=== PATIENT | female | born 1955 | race Caucasian/White ===

== ENCOUNTER 2024-06-07 10:37 | Inpatient (IN) | payer OTHER ==
[~2024-06-07] VITALS: Ht 170.2 cm; Wt 93.1 kg
[~2024-06-07 10:37] MED LIST: ATOR40TA PO
[2024-06-07 11:41] LABS: BASOPHILS ABSOLUTE AUTO 0.08 K/mm3 (0.00-0.23); BASOPHILS PERCENT AUTO 1 % (0-2); EOSINOPHILS ABSOLUTE AUTO 0.18 K/mm3 (0.00-0.68); EOSINOPHILS PERCENT AUTO 2 % (0-6); Hematocrit 42.3 % (33.0-51.0); Hemoglobin 13.7 g/dL (11.5-16.0); IMMATURE GRAN ABSOLUTE AUTO 0.04 K/mm3 (0.00-0.10); IMMATURE GRAN PERCENT AUTO 0 % (0-1); LYMPHOCYTES ABSOLUTE AUTO 2.48 K/mm3 (0.84-5.20); LYMPHOCYTES PERCENT AUTO 21 % (21-46); MONOCYTES ABSOLUTE AUTO 0.65 K/mm3 (0.16-1.47); MONOCYTES PERCENT AUTO 6 % (4-13); Mean Corpuscular HGB 28.9 pg (26.0-34.0); Mean Corpuscular HGB Conc 32.4 g/dL (31.5-36.5); Mean Corpuscular Volume 89 fL (80-100); Mean Platelet Volume 8.7 fL (9.1-12.4); NEUTROPHILS ABSOLUTE AUTO 8.36 K/mm3 (1.96-9.15); NEUTROPHILS PERCENT AUTO 71 % (41-73); Platelet Count 346 K/mm3 (150-400); RDW Coefficient Variation 13.6 % (11.7-14.2); RDW Standard Deviation 44.1 fL (35.1-46.3); Red Blood Cell Count 4.74 M/mm3 (3.80-5.20); White Blood Cell Count 11.79 K/mm3 (4.00-11.30)
[2024-06-07 11:58] LABS: Albumin, Blood 3.5 g/dL (3.4-5.0); Albumin/Globulin Ratio 0.9 (0.8-1.8); Bilirubin, Total 0.4 mg/dL (0.1-1.0); Bun/Creatinine Ratio 22.5 (12.0-20.0); Calcium, Blood 9.5 mg/dL (8.5-10.1); Creatinine, Blood 0.93 mg/dL (0.40-1.00); Globulin, Blood 3.9 g/dL (2.2-4.0); Total Protein, Blood 7.4 g/dL (6.4-8.2)
[2024-06-07 13:10] LABS: Influenza A, PCR NEGATIVE (NEGATIVE); Influenza B, PCR NEGATIVE (NEGATIVE); Resp Syncytial Virus, PCR NEGATIVE (NEGATIVE); SARS-Cov-2 (COVID-19) PCR, MMC NEGATIVE (NEGATIVE)
[2024-06-07] MEDS ORDERED: Lactated Ringer's 1,000 ML IV SCH (14:15)
[2024-06-07] MEDS ORDERED: FLU VACC TS2024-25(6MOS UP)/PF 45 MCG/0.5 ML SYRINGE IM ONE (16:05)
[2024-06-07] MEDS ORDERED: Ipratropium/Albuterol SulF 2.5-0.5MG/3 ML Amp INH PRN (16:45)
[2024-06-07] MEDS ORDERED: NS 1,000 ML IV SCH (17:00)
[2024-06-07 17:26] VITALS: BP 105/79
[2024-06-07] MEDS ORDERED: Metoprolol Tartrate 25 MG Tab PO SCH (18:11)
--- NOTE | 2024-06-07 18:24 | NUR ---
ASSUMPTION OF CARE/SHIFT SUMMARY PT ALERT AND ORIENTED, SHE IS CALM, COOPAERATIVE TO CARE, SKIN INTACT, NO BREAKDOWN NOTED, R AC PIV, NS RUNNING PER EMAR. HR IN THE 100'S-130'S, SINUS RHYTHM, TACHY WITH EXERTION, 02 >92% ON RA, L/S DIM T/O, SOB WITH EXERTION. CALL PLACED TO PROVIDER ORDER FOR HEART RATE CONTROL AND TRENDING TROPONINS. PT QUESTIONS ANSWERED, NO NEW QUESTIONS AT THIS TIME. WILL CONTINUE TO MONITOR AND REPORT TO [employer] BOAT BUILDER RN.
[2024-06-07 20:00] VITALS: BP 116/77
[2024-06-07] MEDS ORDERED: Acetaminophen 500MG/DP-Hydram 25MG HCL 1 Tab PO PRN (20:50)
--- NOTE | 2024-06-08 02:58 | NUR ---
TRANSFER PT TO BE TRANSFERRED TO MEDICAL FLOOR, REPORT GIVEN TO KARMA DURAN. PT A&O X4, PLEASANT AND COOPERATIVE WITH CARE. PT LEFT VIA HOSPITAL BED, ON RA. VSS. PT CONTINUES TO HAVE DYSPNEA WITH EXERTION, BUT AT TIME OF TRANSFER PT DOING WELL RESPIRATORY [facility]. FORENSIC DNA ANALYST TRANSFERRED PT TO MEDICAL FLOOR. OF NOTE THIS RN CALLED RESIDENT TO CLARIFY AND NOTIFY OF PT INITIAL BNP OF [phone], NO DIURETICS ADMINISTERED, PT WITH NS INFUSING CONTINOUSLY AT 100 MLS. THIS RN ASKING FOR CLARIFICATION, WELL IF RESIDENT WOULD LIKE TO ADMINISTER ANY DIURETICS AND IF WANTING TO CONTINUE IVF. NOTIFIED OF PT'S CONTINUED DYSPNEA AND PMH. RESIDENT ORDERS TO DC IVF. RESIDENT TO REVIEW CHART AND MAKE DECISION REGARDING DIURETICS.
[2024-06-08 03:19] VITALS: BP 120/87
[2024-06-08 03:20] VITALS: BP 120/87
--- NOTE | 2024-06-08 06:21 | NUR ---
SHIFT SUMMARY/ PT TRANSFER FROM PCU RECEIVED PT FROM PCU AT 0300. A&O X4. C/O FEELING SOB WITH ANY ACTIVITY. CONTINUOUS PULSE OX PLACED WITH O2 SATS > 90%. SOB INCREASED UPON AWAKENING, BUT PT ABLE TO CARRY ON MULTI SENTENCED CONVERSATION. OOB WITH ASSISTANCE TO BATHROOM. CALL LIGHT WITHIN REACH. SIDE RAILS UP X2. BED ALARM ON.
[2024-06-08 06:23] LABS: BASOPHILS ABSOLUTE AUTO 0.06 K/mm3 (0.00-0.23); BASOPHILS PERCENT AUTO 1 % (0-2); EOSINOPHILS ABSOLUTE AUTO 0.25 K/mm3 (0.00-0.68); EOSINOPHILS PERCENT AUTO 2 % (0-6); Hemoglobin 13.4 g/dL (11.5-16.0); IMMATURE GRAN ABSOLUTE AUTO 0.05 K/mm3 (0.00-0.10); IMMATURE GRAN PERCENT AUTO 0 % (0-1); LYMPHOCYTES PERCENT AUTO 24 % (21-46); MONOCYTES ABSOLUTE AUTO 0.64 K/mm3 (0.16-1.47); MONOCYTES PERCENT AUTO 6 % (4-13); Mean Corpuscular HGB 28.6 pg (26.0-34.0); Mean Corpuscular HGB Conc 31.9 g/dL (31.5-36.5); Mean Corpuscular Volume 90 fL (80-100); Mean Platelet Volume 8.8 fL (9.1-12.4); NEUTROPHILS ABSOLUTE AUTO 7.69 K/mm3 (1.96-9.15); NEUTROPHILS PERCENT AUTO 68 % (41-73); Platelet Count 332 K/mm3 (150-400); RDW Coefficient Variation 13.8 % (11.7-14.2); RDW Standard Deviation 44.4 fL (35.1-46.3); Red Blood Cell Count 4.69 M/mm3 (3.80-5.20); White Blood Cell Count 11.39 K/mm3 (4.00-11.30)
[2024-06-08 06:55] LABS: Alanine Aminotransfer (ALT/SGP 36 U/L (12-78); Albumin, Blood 3.3 g/dL (3.4-5.0); Albumin/Globulin Ratio 0.9 (0.8-1.8); Alk Phos 84 U/L (50-136); Anion Gap 10 mmol/L (3-11); Aspartate Aminotrans (AST/SGOT 33 U/L (12-37); Bilirubin, Total 0.4 mg/dL (0.1-1.0); Blood Urea Nitrogen 20 mg/dL (8-24); Bun/Creatinine Ratio 20.9 (12.0-20.0); CHOL/HDL RATIO 4.3; CO2, Blood 25 mmol/L (21-32); Calcium, Blood 8.9 mg/dL (8.5-10.1); Chloride, Blood 110 mmol/L (98-108); Cholesterol 226 mg/dL (50-200); Creatinine, Blood 0.96 mg/dL (0.40-1.00); Globulin, Blood 3.7 g/dL (2.2-4.0); Glomerular Filtration Rate 64 (60-); Glucose, Blood 119 mg/dL (70-99); HDL Cholesterol 52 mg/dL (>39); LDL/HDL RATIO 2.6; Low Density Lipoprotein Chol 136 mg/dL (0-110); Potassium, Blood 4.1 mmol/L (3.5-5.5); Sodium, Blood 141 mmol/L (136-145); Triglycerides 188 mg/dL (30-160); Very Low Density Lipoprot Chol 37 mg/dL (6-32)
[2024-06-08 07:25] VITALS: BP 118/72
[2024-06-08] MEDS ORDERED: Furosemide 10 MG / ML 2ML Vial IV SCH ×2 (08:00→18:00)
[2024-06-08] MEDS ORDERED: Atorvastatin 40 MG Tab PO SCH (09:00)
[2024-06-08] MEDS ORDERED: Enoxaparin 40 MG/0.4 ML SYR SC SCH (09:00)
[2024-06-08] MEDS ORDERED: HydrOXYzine Pamoate 25 MG Cap PO PRN (12:15)
[2024-06-08] MEDS ORDERED: Acetaminophen 500MG/DP-Hydram 25MG HCL 1 Tab PO PRN (12:20)
[2024-06-08] MEDS ORDERED: Mometasone/Formoterol MDI 200/5 mcg 13 GM INH SCH (12:20)
[2024-06-08 15:12] VITALS: BP 119/65
[2024-06-08] MEDS ORDERED: Albuterol 2.5 MG/3 ML VIAL INH PRN (15:40)
[2024-06-08] MEDS ORDERED: Acetaminophen 500 MG Tab PO PRN (16:25)
--- NOTE | 2024-06-08 17:04 | NUR ---
SHIFT SUMMARY: PATIENT A&OX4/SBA-PHYSICAL THERAPY ADVISED FOR PATIENT TO USE FWW FOR ENERGY CONSERVE DUE TO SHORTNESS OF BREATH. PATIENT NOT USING OXYGEN AT THIS TIME AND OXYGEN SATURATION MAINTAIN ABOVE 90% AND PATIENT STATING SHE FEELS FINE. PATIENT USING INCENTIVE SPIROMETER AND BREATHING TREATMENTS NEEDED, AND BEING DIURESED WITH IV LASIX. URINARY OUTPUT ISN'T MUCH SUSPECTED POST DIURETIC. PATIENT ON FREE WATER RESTRICTION OF 1500. WILL BE NPO AT 0000 FOR SHIP CARPENTER TOMORROW MORNING. PATIENT IN BED, CALL LIGHT WITHIN REACH, NO SIGNS OR SYMPTOMS OF DISTRESS, PLAN OF CARE ONGOING.
[2024-06-08 19:36] VITALS: BP 123/109
[2024-06-08] MEDS ORDERED: Metoprolol Tartrate 50 MG Tab PO SCH (21:00)
[2024-06-08] MEDS ORDERED: Sacubitril/Valsartan 24 MG-26 MG Tab PO SCH (21:00)
[2024-06-09] VITALS (11 sets, daily range): BP systolic 96–124; BP diastolic 55–98
--- NOTE | 2024-06-09 05:49 | NUR ---
SHIFT SUMMARY PT STATES SHE FEELS MUCH LESS SOB SINCE SHE STARTED RECEIVING IV LASIX. REMAINS SOB WITH AMBULATION. 3LNC TO MAINTAIN SATS > 90%. NPO FOR CARDIAC CATH TODAY. MEDICATED FOR ANXIETY AND GENERALIZED BODY PAIN- SEE EMAR. CALL LIGHT WITHIN REACH. SIDE RAILS UP X2.
[2024-06-09] MEDS ORDERED: Verapamil HCL 2.5 MG/ML 2ML Injection ONE ×2 (06:17→07:57)
[2024-06-09] MEDS ORDERED: Heparin Sodium 1000 Units/ML 10ML MDV ONE ×2 (06:18→06:39)
[2024-06-09] MEDS ORDERED: NS 250 ML IV ONE (06:18)
[2024-06-09] MEDS ORDERED: NS 1,000 ML IV ONE ×2 (06:18→06:39)
[2024-06-09] MEDS ORDERED: Nitroglycerin 2 MG/20 ML BTL ONE (06:18)
[2024-06-09] MEDS ORDERED: Midazolam HCl 1MG / ML 2ML Vial ONE (06:39)
[2024-06-09] MEDS ORDERED: FentaNYL Citrate 50 MCG/ML 2 ML Injection ONE (06:39)
--- NOTE | 2024-06-09 06:47 | NUR ---
TRANSPORT HERE TO TAKE PT FOR CARDIAC CATH.
[2024-06-09 06:51] LABS: BASOPHILS ABSOLUTE AUTO 0.07 K/mm3 (0.00-0.23); BASOPHILS PERCENT AUTO 1 % (0-2); EOSINOPHILS ABSOLUTE AUTO 0.22 K/mm3 (0.00-0.68); EOSINOPHILS PERCENT AUTO 2 % (0-6); Hematocrit 41.3 % (33.0-51.0); Hemoglobin 13.1 g/dL (11.5-16.0); IMMATURE GRAN ABSOLUTE AUTO 0.05 K/mm3 (0.00-0.10); IMMATURE GRAN PERCENT AUTO 0 % (0-1); LYMPHOCYTES ABSOLUTE AUTO 2.96 K/mm3 (0.84-5.20); LYMPHOCYTES PERCENT AUTO 25 % (21-46); MONOCYTES ABSOLUTE AUTO 0.89 K/mm3 (0.16-1.47); MONOCYTES PERCENT AUTO 7 % (4-13); Mean Corpuscular HGB 28.4 pg (26.0-34.0); Mean Corpuscular HGB Conc 31.7 g/dL (31.5-36.5); Mean Corpuscular Volume 90 fL (80-100); Mean Platelet Volume 8.9 fL (9.1-12.4); NEUTROPHILS ABSOLUTE AUTO 7.77 K/mm3 (1.96-9.15); NEUTROPHILS PERCENT AUTO 65 % (41-73); Platelet Count 333 K/mm3 (150-400); RDW Coefficient Variation 13.9 % (11.7-14.2); Red Blood Cell Count 4.61 M/mm3 (3.80-5.20); White Blood Cell Count 11.96 K/mm3 (4.00-11.30)
[2024-06-09 07:17] LABS: Bun/Creatinine Ratio 25.5 (12.0-20.0); Calcium, Blood 8.4 mg/dL (8.5-10.1); Creatinine, Blood 0.94 mg/dL (0.40-1.00); Potassium, Blood 4.1 mmol/L (3.5-5.5)
--- NOTE | 2024-06-09 07:36 | NUR ---
PATIENT TAKEN DOWN TO HOME HEALTH PHYSICAL THERAPIST AT 0655. CALLED AND GAVE REPORT TO RELL PARADA FOR ROOM PCU1. PATIENT'S GATHERED HER BELONGINGS AND WILL WAIT ON THE 2ND FLOOR WAITING AREA; WAS NOTIFIED OF PCU1 BED. NOTIFIED EXCELLENCE LEADER THAT PATIENT'S WILL BE WAITING IN WAITING AREA NEAR HOME HEALTH PHYSICAL THERAPIST.
[2024-06-09] MEDS ORDERED: Metoprolol Succinate 50 MG TABCR PO SCH (09:00)
[2024-06-09] MEDS ORDERED: Aspirin 81 MG Chew PO SCH (09:00)
[2024-06-09] MEDS ORDERED: Spironolactone 12.5 MG TAB PO SCH (09:00)
--- NOTE | 2024-06-09 17:45 | NUR ---
PT ARRIVED FROM [facility] THIS AM. THERE WERE NO INTERVERNTIONS DURING CATH TODAY. PT'S HEALTH RECORDS WERE OBTAINED FROM [facility] FOR HER PREVIOUS AAA SURGERY. UPON ARRIVING FROM LOG FEEDER SHE REPORTS THAT HER CHEST PAIN HAS RESOLVED. SHE DNEIES SOB. VSS. BIOX >94% ON ROOM AIR. SHE REPORTS THAT SHE HAS A GOOD DEAL OF ANXIETY RELATED TO HOSPTITALIZATION AND IS REQUIRING HYDROXYZINE FOR ANXIETY Q6. HER TR BAND IS FULLY RECOVERED, NO ACTIVE BLEEDING, NO NUMBNESS OF TINGLING, FULL ROM OF FINGERS, CAP REFILL <3 SECONDS. SHE IS UP WITH PHYSICAL THERAPY AFTER ARRIVAL. SHE IS ABLE TO USE CALL LIGHT AND MAKE NEEDS KNOWN
--- NOTE | 2024-06-10 03:48 | NUR ---
SHIFT SUMMARY NEURO: WNL, LUMBEE CARDIAC: PT REPORTS SOB AFTER SHORT DISTANCES. IN SINUS RHYTHM. RT RADIAL ACCESS SITE WNL, DRESSING CDI NO HEMATOMA. GI/: PT ABLE TO AMBULATE TO THE BATHROOM WHEN NEEDED.
[2024-06-10 04:05] LABS: BASOPHILS ABSOLUTE AUTO 0.06 K/mm3 (0.00-0.23); BASOPHILS PERCENT AUTO 1 % (0-2); EOSINOPHILS ABSOLUTE AUTO 0.37 K/mm3 (0.00-0.68); EOSINOPHILS PERCENT AUTO 4 % (0-6); Hematocrit 40.2 % (33.0-51.0); Hemoglobin 12.9 g/dL (11.5-16.0); IMMATURE GRAN ABSOLUTE AUTO 0.04 K/mm3 (0.00-0.10); IMMATURE GRAN PERCENT AUTO 0 % (0-1); LYMPHOCYTES ABSOLUTE AUTO 2.46 K/mm3 (0.84-5.20); LYMPHOCYTES PERCENT AUTO 25 % (21-46); MONOCYTES ABSOLUTE AUTO 0.64 K/mm3 (0.16-1.47); MONOCYTES PERCENT AUTO 7 % (4-13); Mean Corpuscular HGB 28.6 pg (26.0-34.0); Mean Corpuscular HGB Conc 32.1 g/dL (31.5-36.5); Mean Corpuscular Volume 89 fL (80-100); Mean Platelet Volume 9.2 fL (9.1-12.4); NEUTROPHILS ABSOLUTE AUTO 6.11 K/mm3 (1.96-9.15); NEUTROPHILS PERCENT AUTO 63 % (41-73); Platelet Count 331 K/mm3 (150-400); Red Blood Cell Count 4.51 M/mm3 (3.80-5.20); White Blood Cell Count 9.68 K/mm3 (4.00-11.30)
[2024-06-10 04:30] LABS: Bun/Creatinine Ratio 33.2 (12.0-20.0); Calcium, Blood 8.6 mg/dL (8.5-10.1); Creatinine, Blood 0.94 mg/dL (0.40-1.00); Potassium, Blood 4.1 mmol/L (3.5-5.5)
[2024-06-10 04:47] VITALS: BP 128/95
[2024-06-10 07:49] VITALS: BP 92/81
[2024-06-10] MEDS ORDERED: Furosemide 10 MG / ML 2ML Vial IV SCH (09:00)
[2024-06-10] MEDS ORDERED: Empagliflozin 10 MG TAB PO SCH (11:00)
[2024-06-10 11:54] VITALS: BP 135/77
[2024-06-10] MEDS ORDERED: Enoxaparin 40 MG/0.4 ML SYR SC SCH (12:00)
[2024-06-10 16:30] VITALS: BP 128/94
--- NOTE | 2024-06-10 17:37 | NUR ---
Shift Summary Pt alert, oriented x4; anxious at times, cooperative with care. Pt up ind in room. Pt denies pain, chest pain/pressure, nausea, dizziness and numb/tingling. Pt reports sob with exertion, states it is "alot better" than when she came in. Tele sinus/sinus tach 90-100's bp soft this am, trending up. Abd soft, nontender, + BT. Dr hDillon at bedside, plans to attempts to medically manage at this time. Other vss. No other acute changes noted. Will continue to monitor.
[2024-06-10 19:32] VITALS: BP 133/81
[2024-06-11] VITALS (7 sets, daily range): BP systolic 94–130; BP diastolic 62–118
--- NOTE | 2024-06-11 01:50 | NUR ---
SHIFT SUMMARY NO NEW CHANGES
[2024-06-11 04:11] LABS: BASOPHILS ABSOLUTE AUTO 0.06 K/mm3 (0.00-0.23); BASOPHILS PERCENT AUTO 1 % (0-2); EOSINOPHILS ABSOLUTE AUTO 0.31 K/mm3 (0.00-0.68); EOSINOPHILS PERCENT AUTO 3 % (0-6); Hematocrit 41.1 % (33.0-51.0); Hemoglobin 13.5 g/dL (11.5-16.0); IMMATURE GRAN ABSOLUTE AUTO 0.05 K/mm3 (0.00-0.10); IMMATURE GRAN PERCENT AUTO 1 % (0-1); LYMPHOCYTES ABSOLUTE AUTO 2.48 K/mm3 (0.84-5.20); LYMPHOCYTES PERCENT AUTO 24 % (21-46); MONOCYTES ABSOLUTE AUTO 0.76 K/mm3 (0.16-1.47); MONOCYTES PERCENT AUTO 7 % (4-13); Mean Corpuscular HGB 29.2 pg (26.0-34.0); Mean Corpuscular HGB Conc 32.8 g/dL (31.5-36.5); Mean Corpuscular Volume 89 fL (80-100); Mean Platelet Volume 9.1 fL (9.1-12.4); NEUTROPHILS ABSOLUTE AUTO 6.79 K/mm3 (1.96-9.15); NEUTROPHILS PERCENT AUTO 65 % (41-73); Platelet Count 352 K/mm3 (150-400); RDW Standard Deviation 44.9 fL (35.1-46.3); Red Blood Cell Count 4.63 M/mm3 (3.80-5.20); White Blood Cell Count 10.45 K/mm3 (4.00-11.30)
[2024-06-11 04:28] LABS: Bun/Creatinine Ratio 30.7 (12.0-20.0); Calcium, Blood 8.8 mg/dL (8.5-10.1); Creatinine, Blood 1.01 mg/dL (0.40-1.00); Potassium, Blood 4.2 mmol/L (3.5-5.5)
[2024-06-11] MEDS ORDERED: Metoprolol Succinate 50 MG TABCR PO SCH (09:00)
[2024-06-11] MEDS ORDERED: Atorvastatin 40 MG Tab PO SCH (09:00)
[2024-06-11 14:06] LABS: Magnesium, Blood 2.3 mg/dL (1.6-2.4); Thyroxine (T4) 7.6 ug/dL (4.8-13.9)
[2024-06-11 14:11] LABS: Thyroid Stimulating Hormone 2.69 uIU/mL (0.360-4.800); Triiodothyronine, Free 1.73 pg/mL (2.18-3.98)
--- NOTE | 2024-06-11 17:24 | NUR ---
Shift Summary Pt alert, oriented x4; anxious at times, cooperative with care. Pt rest in bed for majority of shift, up ind in bed. Pt denies pain, chest pain, nausea, dizziness and numb/tingling. For majority of shift pt denies SOB, spo2 >90% on ra, breathing even and unlabored, ls clear. Tele sinus, bp stable. Abd soft, nontender, + bt t/o. This afternoon pt reports increasing SOB, no changes in ls and vss, Dr Rivas at bedside, order to give 1800 dose of lasix now. Other vss. No other acute changes noted. Will continue to monitor.
--- NOTE | 2024-06-12 02:22 | NUR ---
PT REQUESTING 0400 VITALS NOW, EDUCATED ON RISK AND BENEFITS, VERBALIZED UNDERSTANDING
[2024-06-12 02:23] VITALS: BP 98/65
[2024-06-12 04:12] LABS: Bun/Creatinine Ratio 39.1 (12.0-20.0); Calcium, Blood 8.5 mg/dL (8.5-10.1); Creatinine, Blood 1.15 mg/dL (0.40-1.00)
--- NOTE | 2024-06-12 04:33 | NUR ---
SHIFT SUMMARY PT TOOK SHOWER AND STARTED ON NIGHT TIME DOSE OF METOPROLOL. OTHERWISE NO CHANGES.
[2024-06-12 07:38] VITALS: BP 113/64
[2024-06-12 09:47] VITALS: BP 95/58
[2024-06-12] MEDS ORDERED: ATOR80 PO (11:03)
[2024-06-12] MEDS ORDERED: ASPI81CH PO (11:03)
[2024-06-12] MEDS ORDERED: JARDIANCE10 MG PO (11:04)
[2024-06-12] MEDS ORDERED: FURO40 PO (11:06)
[2024-06-12] MEDS ORDERED: HYDPAM25 PO (11:10)
[2024-06-12] MEDS ORDERED: METO50ER PO (11:11)
[2024-06-12] MEDS ORDERED: DULERA 100 MCG/13 GM INH (11:11)
[2024-06-12] MEDS ORDERED: ENTRESTO 24 MG1 EACH PO (11:12)
[2024-06-12] MEDS ORDERED: SPIR25 PO (11:12)
[2024-06-12 11:30] VITALS: BP 92/58
--- NOTE | 2024-06-12 12:49 | NUR ---
DISCHARG SUMMARY @ APPROX 1150 PT A&O X4, OBEYS COMMANDS, ABLE TO MAKE NEEDS KNOWN, IND IN ROOM, ABLE TO MOVE ALL EXTREMITIES EQUALLY. LUNGS CLEAR T/O, SPO2 GREATHER THAN 95% ON RA, DENIES SOB T/P SHIFT. CONTINOUS CARDIAC MONITORING, HR 80'S SINUS RHYTHM, BP SOFT BUT STABLE AND NOT CONCERNING AT THIS TIME, PT DENIED CHEST P/P T/O THIS SHIFT. PT EDUCATED WITH IN ROOM ON FOLLOW UP APPOINTMENTS, BLOOD DRAW APPOINTMENT/PERSCRIPTION SLIP GIVEN TO PT AND PLACED IN DISCHARGE FOLDER, PT EDUCATED ON NEW MEDICATIONS AND THEIR PERAMETERS, PT EDUCATED TO TAKE BLOOD PRESSURE BEFORE MEDICATIONS, PT EDUCATED ON FLUID RESTICTION AND HEART HEALTHY DIET AND TO TAKE DAILY WEIGHTS AT HOME, PT STATES THAT THEY A SCALE ORDERED AND ON ITS WAY. PT EDUCATED ON ANGIOGRAM PUNCTURE SITE. IV'S REMOVED. PT WHEELED OUT BY MEDICAL STAFF. DR. LAGUERRE CAME TO BEDSIDE THIS MORNING AND EDUCATED PT AND PROVIDED PT WITH UPDATES TO PLAN OF CARE. DR. MAGANA ROUNDED ON PT THIS MORNING.
== END 2024-06-12 12:11 | disposition home or self-care (01) | DRG 287 ==
LOC: ER 10:37 → MEDS 10:38 → ER 16:03 → PCU 17:14 → MEDS 17:14 → PCU 06-08 03:05 → MEDS 06-08 03:05 → PCU 06-08 15:21 → MEDS 06-08 15:21 → PCU 06-09 08:43
PROVIDERS: Family Medicine; Physician Assistant; Student in an Organized Health Care Education/Training Program; ADMIT Internal Medicine
PROC: B2111ZZ Fluoroscopy of Multiple Coronary Arteries using Low Osmolar Contrast (ICD-10-PCS; principal; 2024-06-09)
PROC: 4A023N6 Measurement of Cardiac Sampling and Pressure, Right Heart, Percutaneous Approach (ICD-10-PCS; 2024-06-09)
DX: I50.43 Acute on chronic combined systolic (congestive) and diastolic (congestive) heart failure (principal); K55.1 Chronic vascular disorders of intestine; I27.20 Pulmonary hypertension, unspecified; Z28.21 Immunization not carried out because of patient refusal; I70.1 Atherosclerosis of renal artery; I73.9 Peripheral vascular disease, unspecified; J43.9 Emphysema, unspecified; F41.9 Anxiety disorder, unspecified; E87.5 Hyperkalemia; I25.10 Atherosclerotic heart disease of native coronary artery without angina pectoris; I77.811 Abdominal aortic ectasia; I25.2 Old myocardial infarction; Z79.899 Other long term (current) drug therapy; Z79.82 Long term (current) use of aspirin; Z87.891 Personal history of nicotine dependence
CPT/HCPCS: 0241U; 36415; 71046; 71260; 75635; 76937; 80048; 80053; 80061; 83036; 83735; 83880; 84436; 84439; 84443; 84481; 84484; 85025; 85379; 93005; 93010; 93456; 94640; 94664; 94760; 94762; 96372; 96374; 97112; 97116; 97161; 97530; 99152; 99153; 99285-25; A9270; C1769; C1887; C1894; C8929; G0378; J1644; J1650; J1940; J2250; J3010; J7030; J7050; J7120; Q0177; Q9957; Q9967

== ENCOUNTER 2024-09-12 07:07 | Day surgery (SDC) | payer OTHER ==
[2024-09-12] VITALS (8 sets, daily range): BP systolic 106–133; BP diastolic 52–81
[~2024-09-12] VITALS: Ht 170.2 cm; Wt 95.3 kg
[~2024-09-12 07:07] MED LIST changes: +ASPI81CH PO; +ATOR80 PO; +DULERA 100 MCG/13 GM INH; +ENTRESTO 24 MG1 EACH PO; +FURO40 PO; +HYDPAM25 PO; +JARDIANCE10 MG PO; +METO50ER PO; +SPIR25 PO
[2024-09-12] MEDS ORDERED: Verapamil HCL 2.5 MG/ML 2ML Injection ONE (07:13)
[2024-09-12] MEDS ORDERED: Nitroglycerin 2 MG/20 ML BTL ONE (07:14)
[2024-09-12] MEDS ORDERED: Heparin Sodium 1000 Units/ML 10ML MDV ONE (07:14)
[2024-09-12] MEDS ORDERED: NS 250 ML IV ONE (07:14)
[2024-09-12] MEDS ORDERED: NS 1,000 ML IV ONE ×2 (07:14→08:12)
[2024-09-12] MEDS ORDERED: FentaNYL Citrate 50 MCG/ML 2 ML Injection ONE (08:11)
[2024-09-12] MEDS ORDERED: Midazolam HCl 1MG / ML 2ML Vial ONE (08:12)
--- NOTE | 2024-09-12 09:37 | NUR ---
Pt sitting up in recliner eating breakfast, Dr. Dhillon in to talk with pt. TR band wnl, no oozing no hematoma at this time. VSS. awaiting bed placement. Pt to bedside.
--- NOTE | 2024-09-12 11:11 | NUR ---
TR band deflation initiated. 3cc of air removed, after waiting 5 min additional 2cc of air removed with oozing noted, 2cc reinstilled when oozing was noted, no further oozing at this time will continue to deflate per protocol.
--- NOTE | 2024-09-12 11:34 | NUR ---
TR band deflated at this, remains in place. water provided per pt request. Pt. vss remain stable.
--- NOTE | 2024-09-12 12:15 | NUR ---
TR BAND REMOVED, BANDAGE PLACED. SITE REMAINS WNL, SMALL DIME SIZED BRUISE AT INSERTION SITE , NO OOZING AND NO SWELLING. ARM BOARD REPLACED. VSS REMAIN STABLE. CALL FROM [facility] [employer] SUR[facility]YOR WITH ROOM AND ACCEPTING FOR TRANSFER. [facility] CALLED FOR TRANSPORT. PT FAMILY REMAINS AT BEDSIDE. PT UP TO USE BATHROOM. STABLE ON FEET. IV REMAINS IN PLACE, SALINE LOCKED
--- NOTE | 2024-09-12 12:48 | NUR ---
REPORT CALLED TO CHELSEA CABRAL RN, ABEL. AWAITING [facility] TRANSPORT. PT GOING TO [facility] [id number]
--- NOTE | 2024-09-12 13:27 | NUR ---
PT LEFT VIA AMBULANCE TO [facility] [employer] NOTIFIED.
== END 2024-09-12 13:33 | disposition home or self-care (01) ==
LOC: MHTC 07:07
DX: I25.112 Atherosclerotic heart disease of native coronary artery with refractory angina pectoris (principal); E78.5 Hyperlipidemia, unspecified; J44.9 Chronic obstructive pulmonary disease, unspecified; I50.20 Unspecified systolic (congestive) heart failure; Z79.82 Long term (current) use of aspirin; Z79.899 Other long term (current) drug therapy; Z87.891 Personal history of nicotine dependence
CPT/HCPCS: 76937; 93454; 99152; C1769; C1894; J1644; J2250; J3010; J7030; J7050; Q9967

== ENCOUNTER 2025-06-01 07:49 | Day surgery (SDC) | payer OTHER ==
[~2025-06-01] VITALS: Ht 170.2 cm; Wt 95.0 kg
[~2025-06-01 07:49] MED LIST changes: +Amiodarone HCl200 MG PO; +EZET10 PO; +OXYC5 PO; +ROPI1 PO
[2025-06-01] MEDS ORDERED: NS 250 ML IV ONE (08:06)
[2025-06-01] MEDS ORDERED: NS 100 ML IV ONE (08:06)
[2025-06-01] MEDS ORDERED: NS 1,000 ML IV ONE ×2 (08:07→08:13)
[2025-06-01] MEDS ORDERED: Heparin Sodium 1000 Units/ML 10ML MDV ONE ×2 (08:07→09:26)
[2025-06-01] MEDS ORDERED: FentaNYL Citrate 50 MCG/ML 2 ML Injection ONE (08:39)
[2025-06-01] MEDS ORDERED: Midazolam HCl 1MG / ML 2ML Vial ONE (08:39)
[2025-06-01] MEDS ORDERED: Phenylephrine HCl 100 MCG/ML-NS 10MLSYR (1MG/10ML) ONE (09:09)
--- NOTE | 2025-06-01 12:00 | NUR ---
PT AMB TO THE BATHROOM /C SBA. TOLERATED WELL. NEG BLEEDING OR SWELLING R GROIN AREA.
[2025-06-01] MEDS ORDERED: CLOP75 PO (12:11)
--- NOTE | 2025-06-01 12:22 | NUR ---
PT AND VERBALIZED UNDERSTANDING OF WRITTEN AND VERBAL D/C INST. IV REMOVED. PT TAKEN OUT OF THE HRT CENTER VIA W/C.
== END 2025-06-01 12:24 | disposition home or self-care (01) ==
LOC: MHTC 07:49
DX: I73.9 Peripheral vascular disease, unspecified (principal); I25.10 Atherosclerotic heart disease of native coronary artery without angina pectoris; I65.22 Occlusion and stenosis of left carotid artery; I71.40 Abdominal aortic aneurysm, without rupture, unspecified; I77.1 Stricture of artery; E78.49 Other hyperlipidemia; J44.9 Chronic obstructive pulmonary disease, unspecified; I50.22 Chronic systolic (congestive) heart failure; Z87.891 Personal history of nicotine dependence; Z79.82 Long term (current) use of aspirin; Z79.899 Other long term (current) drug therapy; Z95.1 Presence of aortocoronary bypass graft
CPT/HCPCS: 36140; 36200; 37220; 37225; 37228; 75625; 75716; 75774; 76937; 99152; 99153; C1714; C1725; C1760; C1769; C1887; C1894; C2623; J1644; J2250; J2371; J3010; J7030; J7050; Q9967

== ENCOUNTER → 2025-06-18 | Outpatient (CLI) | payer OTHER ==
[~2025-06-18] MED LIST changes: +CLOP75 PO
[2025-06-18 16:24] LABS: Hematocrit 37.5 % (33.0-51.0); Hemoglobin 12.1 g/dL (11.5-16.0); Mean Corpuscular HGB Conc 32.3 g/dL (31.5-36.5); Mean Corpuscular Volume 91 fL (80-100); NRBC ABSOLUTE 0.00 K/mm3 (0.00-0.02); NRBC Auto 0.0 /100 WBC (0.0-0.2); Platelet Count 569 K/mm3 (150-400); RDW Coefficient Variation 13.8 % (11.7-14.2); RDW Standard Deviation 46.3 fL (35.1-46.3)
[2025-06-18 16:34] LABS: Alanine Aminotransfer (ALT/SGP 60.0 U/L (12-78); Albumin, Blood 2.7 g/dL (3.4-5.0); Albumin/Globulin Ratio 0.5 (0.8-1.8); Anion Gap 9.0 mmol/L (3-11); Aspartate Aminotrans (AST/SGOT 48.0 U/L (12-37); Bilirubin, Total 0.4 mg/dL (0.1-1.0); Blood Urea Nitrogen 39.0 mg/dL (8-24); CO2, Blood 25.0 mmol/L (21-32); Calcium, Blood 9.0 mg/dL (8.5-10.1); Chloride, Blood 105.0 mmol/L (98-108); Creatinine, Blood 1.28 mg/dL (0.40-1.00); Globulin, Blood 5.0 g/dL (2.2-4.0); Glucose, Blood 128.0 mg/dL (70-99); Potassium, Blood 4.6 mmol/L (3.5-5.5); Sodium, Blood 134.0 mmol/L (136-145); Total Protein, Blood 7.7 g/dL (6.4-8.2)
[2025-06-18 17:34] LABS: Influenza A/2009-H1 Not Detected (NOT DETECT); SARS-Cov-2 (COVID-19), BioFire Not Detected (NOT DETECT)
[2025-06-18 18:04] LABS: BASOPHILS ABSOLUTE MAN 0.16 K/mm3 (0.00-0.23); BASOPHILS PERCENT MAN 1 % (0-2); EOSINOPHILS ABSOLUTE MAN 0.16 K/mm3 (0.00-0.68); EOSINOPHILS PERCENT MAN 1 % (0-6); LYMPHOCYTES % ATYPICAL MANUAL 1 % (0-0); LYMPHOCYTES ABSOLUTE MAN 3.52 K/mm3 (0.84-5.20); LYMPHOCYTES PERCENT MAN 21 % (21-46); MONOCYTES ABSOLUTE MAN 0.80 K/mm3 (0.16-1.47); MONOCYTES PERCENT MAN 5 % (4-13); NEUTROPHILS ABSOLUTE MAN 11.38 K/mm3 (1.96-9.15); SEG NEUTROPHILS PERCENT MAN 71 % (41-73)
== END ==
LOC: LAB 11:31 → LAB SHORT 11:31
PROVIDERS: Nurse Practitioner Family
DX: R06.02 Shortness of breath (principal)
CPT/HCPCS: 0202U; 80053; 83880; 85025

== ENCOUNTER → 2025-06-19 | Outpatient (CLI) | payer OTHER ==
[2025-06-20 01:03] LABS: Campylobacter Sp Not Detected (NOT DETECT); Salmonella Sp Not Detected (NOT DETECT)
[2025-06-20 01:04] LABS: E. Coli O157 Not Detected (NOT DETECT); Enteroaggregative E. coli-EAEC Not Detected (NOT DETECT); Enteropathogenic E. coli-EPEC Not Detected (NOT DETECT); Enterotoxigenic E. coli-ETEC Not Detected (NOT DETECT); Shiga Toxin-prod E. coli-STEC Not Detected (NOT DETECT); Shigella/Enteroin E. coli-EIEC Not Detected (NOT DETECT); Vibrio Sp Not Detected (NOT DETECT)
== END ==
LOC: LAB SHORT 12:45 → LAB 12:45
PROVIDERS: Nurse Practitioner Family
DX: R19.7 Diarrhea, unspecified (principal)
CPT/HCPCS: 87507

== ENCOUNTER 2025-08-02 10:49 | Day surgery (SDC) | payer OTHER ==
[~2025-08-02] VITALS: Ht 170.2 cm; Wt 96.0 kg
[2025-08-02] VITALS (9 sets, daily range): BP systolic 132–154; BP diastolic 68–85
[~2025-08-02 10:49] MED LIST changes: +JARDIANCE25 MG PO
[2025-08-02] MEDS ORDERED: Heparin Sodium 1000 Units/ML 10ML MDV ONE (12:14)
[2025-08-02] MEDS ORDERED: NS 250 ML IV ONE (12:14)
[2025-08-02] MEDS ORDERED: NS 1,000 ML IV ONE ×2 (12:15→12:50)
[2025-08-02] MEDS ORDERED: FentaNYL Citrate 50 MCG/ML 2 ML Injection ONE (12:54)
[2025-08-02] MEDS ORDERED: Midazolam HCl 1MG / ML 2ML Vial ONE (12:54)
[2025-08-02] MEDS ORDERED: NS 100 ML IV ONE (12:54)
--- NOTE | 2025-08-02 12:55 | NUR ---
PATIENT ARRIVED BACK TO RECOVERY ROOM WITH OHB FLAT. LEFT GROIN SITE C/D/I SOFT/NONTENDER, NO EVIDENCE OF BLEEDING. PATIENT DENYING ANY PAIN. VSS ON RA.
[2025-08-02] MEDS ORDERED: ALBU90OI INH (14:17)
--- NOTE | 2025-08-02 15:05 | NUR ---
PATIENT HOB ELEVATED. LEFT GROIN SITE C/D/I SOFT/NONTENDER, NO EVIDENCE OF BLEEDING. VSS ON RA.
--- NOTE | 2025-08-02 15:14 | NUR ---
PATIENT SITTING UPRIGHT IN BED TOLERATING PO INTAKE WELL. VSS ON RA. LEFT GROIN SITE C/D/I SOFT/NONTENDER, NO EVIDENCE OF BLEEDING. PATIENT DENYING ANY PAIN.
--- NOTE | 2025-08-02 15:52 | NUR ---
DISCHARGE INSTRUCTIONS REVIEWED WITH PATIENT AND SPOUSE, ALL QUESTIONS WERE ANSWERED. LEFT GROIN SITE C/D/I SOFT/NONTENDER. PATIENT AMBULATING TO RESTROOM WITHOUT DIFFICULTY. VSS ON RA.
--- NOTE | 2025-08-02 16:05 | NUR ---
PATIENT DISCHARGED HOME AT THIS TIME. PIV REMOVED WTIHOUT DIFFICULTY, CATHETER INTACT. VSS ON RA. PATIENT WHEELED TO HOSPITAL ENTRANCE AND SPOUSE ABLE TO PROVIDE TRANSPORTATION HOME.
== END 2025-08-02 16:05 | disposition home or self-care (01) ==
LOC: MHTC 10:49
DX: I70.211 Atherosclerosis of native arteries of extremities with intermittent claudication, right leg (principal); G45.3 Amaurosis fugax; E78.49 Other hyperlipidemia; I71.40 Abdominal aortic aneurysm, without rupture, unspecified; I50.20 Unspecified systolic (congestive) heart failure; I25.10 Atherosclerotic heart disease of native coronary artery without angina pectoris; I77.1 Stricture of artery; Z87.891 Personal history of nicotine dependence; Z79.82 Long term (current) use of aspirin; Z79.84 Long term (current) use of oral hypoglycemic drugs; Z79.899 Other long term (current) drug therapy; Z95.1 Presence of aortocoronary bypass graft
CPT/HCPCS: 76937; 99152; 99153; C1714; C1725; C1760; C1769; C1887; C1894; C2623; J1644; J2250; J3010; J7030; J7050; Q9967